=== PATIENT | male | born 1980 | race African-American/Black ===

== ENCOUNTER 2019-07-28 17:56 | Inpatient (IN) ==
[2019-07-28] MEDS ORDERED: DOXYCYCLINE PO ONE (18:34)
[2019-07-28] MEDS ORDERED: ROCEPHIN 2 GM in NS 50 ML IV ONE (18:34)
[2019-07-28 18:40] LABS: BASO# 0.03 X1000 (0.0-0.2); BASO% 0.4 % (0.0-0.8); EOS# 0.01 X1000 (0.0-0.7); EOS% 0.1 % (0.0-10.0); HEMOGLOBIN 13.8 g/dL (14.0-18.0); IMM GRAN# 0.02 X1000 (0.0-0.04); IMM GRAN% 0.2 % (0.0-0.5); LYMPH# 1.41 X1000 (1.2-3.4); LYMPH% 17.2 % (20.5-51.1); MCH 29.2 PG (27-31); MCHC 32.9 g/dL (33-37); MONO# 0.85 X1000 (0.11-0.59); MONO% 10.3 % (1.7-9.3); MPV 9.4 FL (7.4-10.4); NEUT% 71.8 % (42.2-75.2); PLT 325 X1000 (130-400); RBC 4.72 XMIL (4.7-6.1); RDW 14.9 % (11.5-14.5); WBC 8.22 X1000 (4.8-10.8)
--- NOTE | 2019-07-28 18:41 | Diag Imaging Result Doc PS360 ---
EXAM: CHEST-2 VIEWS - 07/28/2019 HISTORY: SOB TECHNIQUE: Chest two views COMPARISON: None. FINDINGS: There are right lower lung consolidation and atelectasis. There is a small to medium right pleural effusion. There is mild prominence of vascular interstitial markings. The right heart border is largely obscured but heart size appears to be borderline to mildly enlarged. IMPRESSION: Findings which may represent a combination of right lower lung pneumonia and pulmonary edema. Electronically signed by Faraz Flowers 07/28/2019 6:39 PM
--- NOTE | 2019-07-28 18:45 | EKG Report ---
Test Performed on : 07/28/2019 6:13:53 PM Test Reason : SOB Blood Pressure : / mmHG Vent. Rate : 111 BPM Atrial Rate : 111 BPM P-R Int : 140 ms QRS Dur : 092 ms QT Int : 354 ms P-R-T Axes : 036 -26 -27 degrees QTc Int : 481 ms Sinus tachycardia. Possible Left atrial enlargement T wave abnormality, consider lateral ischemia Abnormal ECG When compared with ECG of 29-MAR-2008 17:21, Non-specific change in ST segment in Anterior leads Nonspecific T wave abnormality, worse in Inferior leads T wave inversion now evident in Lateral leads Unconfirmed Result
[2019-07-28 18:48] LABS: INR 1.15; PROTIME 14.9 Seconds (11.0-16.0)
[2019-07-28 18:49] LABS: PTT 30.9 Seconds (22.3-41.8)
--- NOTE | 2019-07-28 19:00 | PROVIDER DOCUMENTATION ---
This chart was entered by Akiko Villareal Scribe, acting as scribe for Anthony Dubois MD. HPI-Respiratory General <GhanshyamAngel Jose David - Last Filed: 07/28/19 20:50> - General Source: patient - History of Present Illness-Resp Severity in ED: reports: mild Onset/Duration: reports: other (1 mon) Timing: reports: still present Cough Quality/Degree: reports: dry cough Episode Frequency: no prior episodes Current Respiratory Medication Therapy: Initiated none Modifying Factors: improves with: other (bending worsens and sleeping certain w ays worsens) Associated Symptoms: reports: cough, shortness of breath. denies: fever/chills, flu-like symptoms <Anthony Dubois - Last Filed: 07/29/19 07:26> - General Chief Complaint: Shortness of Breath Stated Complaint: SOB,EDEMA Time Seen by Provider: 07/28/19 18:16 Allergies/Adverse Reactions: Patient Allergies Allergy/AdvReac Type Severity Reaction Status Date / Time No Known Allergies Allergy Verified 01/22/17 11:24 Home Medications: Home Medication List Medication Instructions Recorded Confirmed Last Taken Type NK [No Home Medications] 07/29/19 07/29/19 Unknown History - History of Present Illness-Resp Nature of Presenting Problem: 39 yobm c/o sob and nonproductive cough for 1 month. pt sts bending and sleeping certain ways worsens pain. pt pilar has been sick at home and was in hospital. pt denies TB exposure. no fever, cp or nvd. (Anthony Dubois) Review of Systems - Adult - REVIEW OF SYSTEMS - ADULT Constitutional: reports: no symptoms reported. denies: chills, fever, night sweats Eyes: reports: no symptoms reported Ears, Nose, Mouth & Throat: reports: no symptoms reported Cardiovascular: reports: no symptoms reported. denies: chest pain Respiratory: reports: see HPI, cough, shortness of breath. denies: dyspnea on exertion, excessive sputum production, hemoptysis Gastrointestinal: reports: no symptoms reported. denies: diarrhea, nausea, vomiting Genitourinary: reports: no symptoms reported Musculoskeletal: reports: no symptoms reported Integumentary: reports: no symptoms reported Neurological: reports: no symptoms reported Psychiatric: reports: no symptoms reported Endocrine: reports: no symptoms reported Hematologic/Lymphatic: reports: no symptoms reported Allergic/Immunologic: reports: no symptoms reported All Other Systems: Reviewed and Negative <Anthony Dubois - Last Filed: 07/29/19 07:26> Past History - Adult - PAST MEDICAL HISTORY-ADULT Review of Records: reports: Nursing Assessment Review, Medications Reviewed, Social history reviewed & non-contributory. Major Childhood Illnesses: reports: denies history Cardiovascular: reports: denies history Respiratory: reports: denies history Gastrointestinal: reports: denies history Obstetrical/Gynecological: reports: denies history Genitourinary: reports: denies history Musculoskeletal: reports: denies history Neurological: reports: denies history Endocrine/Immune: reports: denies history Other Conditions: reports: denies history - PRIOR SURGERIES/PROCEDURES Surgical/Procedure History: reports: hernia repair - IMMUNIZATION STATUS Childhood Immunizations: See Nurse Assessment Flu Vaccine: See Nurse Assessment - FAMILY HISTORY Family History: reviewed, not pertinent - SOCIAL HISTORY Smoking: cigarettes, less than 1 pack/day Provider spent 3-5 mins advising pt. on dangers of tobacco.: Discussed manners to quit use, and f/u contacts for add'l counseling. Substance Use: none/never <Anthony Dubois - Last Filed: 07/29/19 07:26> Physical Exam-General - PHYSICAL EXAM-ADULT Initial Vital Signs Reviewed: Yes - CONSTITUTIONAL General Appearance: alert, no apparent distress. negative: cachetic, lethargic, slow to respond - EYES Eyes: PERRL/EOMI - HEAD, EARS, NOSE, MOUTH & THROAT HENMT: normocephalic/atraumatic, moist mucous membranes - NECK Neck: non-tender, full range of motion, supple, normal inspection - RESPIRATORY Respiratory: chest non-tender, normal breath sounds, no pleuratic chest pain, no respiratory distress, no accessory muscle use, decreased breath sounds (dullness at right base posteriorly), rales (rt sided). negative: lungs clear, respiratory distress, accessory muscle use - CARDIOVASCULAR Cardiovascular: normal peripheral pulses, no edema, no gallop, no JVD, no murmur , tachycardia. negative: regular rate, rhythm, irregularly irregular, PMI displaced laterally - GASTROINTESTINAL (ABDOMEN) Abdominal Exam: normal bowel sounds, non tender, soft - MUSCULOSKELETAL Back Exam: normal inspection Extremity: normal range of motion, non-tender, normal gait, normal inspection, normal capillary refill, pelvis stable. negative: abnormal NV exam, slow capillary refill - SKIN Integumentary: normal color, normal turgor, warm/dry - NEUROLOGIC Neurologic: grossly normal, no motor/sensory deficits - PSYCHIATRIC Psych/Mental Status: normal mood/affect, normal thought content, normal thought process, oriented x 3 <Anthony Dubois - Last Filed: 07/29/19 07:26> Progress - PLAN OF CARE/RESULTS Result Diagrams: 07/28/19 18:13 07/28/19 18:13 - CONSULTS/PCP/HOSPITALIST Notification #1 *Consult/PCP/Hospitalist*: Dr Gautam Time Discussed: 20:52 Consult Disposition: Will see in ED <Angel Morrissey - Last Filed: 07/28/19 20:50> - PLAN OF CARE/RESULTS Result Diagrams: 07/28/19 18:13 07/28/19 18:13 - EKG 1 Time of EKG reading by physician:: 18:13 EKG Read and Signed by:: Anthony Dubois EKG Interpretation (*Must complete 3 of following elements*): Abnormal Rate: 111 (possible LAE ) Rhythm: Sinus tachycardia [place]: normal QRS: normal VT Interval: normal ST Wave: non-specific ST changes (T wave abnoramlity, consider lateral ischemia) - XRAY 1 XRAY Study: Chest Impression: Abnormal, See EMR Report ( EXAM: CHEST-2 VIEWS - 07/28/2019 HISTORY: SOB TECHNIQUE: Chest two views COMPARISON: None. FINDINGS: There are right lower lung consolidation and atelectasis. There is a small to medium right pleural effusion. There is mild prominence of vascular interstitial markings. The right heart border is largely obscured but heart size appears to be borderline to mildly enlarged. IMPRESSION: Findings which may represent a c ombination of right lower lung pneumonia and pulmonary edema. Electronically signed by Faraz Flowers 07/28/2019 6:39 PM) - CHANGE OF SHIFT REPORT (ED Provider) 1 Report Given and Care Transferred to:: Dr. Mrorissey Time of Transfer: 19:00 Items Pending: CT/MRI Results <Anthony Dubois - Last Filed: 07/29/19 07:26> - PLAN OF CARE/RESULTS Progress/Plan/Lab Results: 07/28/19 19:10 Influenza Screen - Final Nasopharyngeal Laboratory Results - last 24 hr 07/28/19 07/28/19 07/28/19 18:13 18:13 18:13 WBC RBC Hgb Hct MCV MCH MCHC RDW Std Deviation Plt Count MPV Immature Gran % (Auto) Neut % (Auto) Lymph % (Auto) [place] % (Auto) Eos % (Auto) Baso % (Auto) Immature Gran # (Auto) Neut # (Auto) Lymph # (Auto) [place] # (Auto) Eos # (Auto) Baso # (Auto) PT INR PTT (Actin FS) Sodium 141 Potassium 4.2 Chloride 103 Carbon Dioxide 25 Anion Gap 13 BUN 20 Creatinine 1.2 Estimated GFR/1.73 m2 > 60 BUN/Creatinine Ratio 17 Glucose 129 H Calculated Osmolality 286 Calcium 8.2 L Total Bilirubin 0.76 AST 36 H ALT 88 H Alkaline Phosphatase 145 H Creatine Kinase 325 H Creatine Kinase Index 1.0 CK-MB (CK-2) 3.25 Troponin T High Sens Lib-V-Stbfdibfowy Pept 4321 H Total Protein 5.9 L Albumin 3.5 Globulin 2.4 Albumin/Globulin Ratio 1.5 Plasma Lactate 1.5 Urine Source Urine Color Urine Turbidity Urine pH Ur Specific [place] Urine Protein Ur Glucose (Stick) Ur Ketones (Stick) Urine Blood Urine Nitrite Urine Bilirubin Urobilinogen Dipstick Urine Leukocytes Urine WBC (Auto) Urine RBC (Auto) U Epithel Cells (Auto) Urine Bacteria (Auto) 07/28/19 07/28/19 07/28/19 18:13 18:13 18:13 WBC 8.22 RBC 4.72 Hgb 13.8 L Hct 42.0 MCV 89.0 MCH 29.2 MCHC 32.9 L RDW Std Deviation 14.9 H Plt Count 325 MPV 9.4 Immature Gran % (Auto) 0.2 Neut % (Auto) 71.8 Lymph % (Auto) 17.2 L [place] % (Auto) 10.3 H Eos % (Auto) 0.1 Baso % (Auto) 0.4 Immature Gran # (Auto) 0.02 Neut # (Auto) 5.90 Lymph # (Auto) 1.41 [place] # (Auto) 0.85 H Eos # (Auto) 0.01 Baso # (Auto) 0.03 PT 14.9 INR 1.15 PTT (Actin FS) 30.9 Sodium Potassium Chloride Carbon Dioxide Anion Gap BUN Creatinine Estimated GFR/1.73 m2 BUN/Creatinine Ratio Glucose Calculated Osmolality Calcium Total Bilirubin AST ALT Alkaline Phosphatase Creatine Kinase Creatine Kinase Index CK-MB (CK-2) Troponin T High Sens 27 H Dwi-M-Ylwhzrdrzvm Pept Total Protein Albumin Globulin Albumin/Globulin Ratio Plasma Lactate Urine Source Urine Color Urine Turbidity Urine pH Ur Specific [place] Urine Protein Ur Glucose (Stick) Ur Ketones (Stick) Urine Blood Urine Nitrite Urine Bilirubin Urobilinogen Dipstick Urine Leukocytes Urine WBC (Auto) Urine RBC (Auto) U Epithel Cells (Auto) Urine Bacteria (Auto) 07/28/19 07/28/19 20:30 22:05 WBC RBC Hgb Hct MCV MCH MCHC RDW Std Deviation Plt Count MPV Immature Gran % (Auto) Neut % (Auto) Lymph % (Auto) [place] % (Auto) Eos % (Auto) Baso % (Auto) Immature Gran # (Auto) Neut # (Auto) Lymph # (Auto) [place] # (Auto) Eos # (Auto) Baso # (Auto) PT INR PTT (Actin FS) Sodium Potassium Chloride Carbon Dioxide Anion Gap BUN Creatinine Estimated GFR/1.73 m2 BUN/Creatinine Ratio Glucose Calculated Osmolality Calcium Total Bilirubin AST ALT Alkaline Phosphatase Creatine Kinase Creatine Kinase Index CK-MB (CK-2) Troponin T High Sens Fsf-E-Bvbpbsekxvn Pept Total Protein Albumin Globulin Albumin/Globulin Ratio Plasma Lactate 1.0 Urine Source CLEAN CATCH Urine Color YELLOW Urine Turbidity CLEAR Urine pH 6.5 Ur Specific [place] 1.015 Urine Protein 70 A Ur Glucose (Stick) NEGATIVE Ur Ketones (Stick) NEGATIVE Urine Blood NEGATIVE Urine Nitrite NEGATIVE Urine Bilirubin NEGATIVE Urobilinogen Dipstick 2 A Urine Leukocytes NEGATIVE Urine WBC (Auto) 10-20 A Urine RBC (Auto) <10 U Epithel Cells (Auto) <10 Urine Bacteria (Auto) NEGATIVE Orders Category Date Time Status Admit - [facility] Routine AdmDCTranf 07/28/19 23:08 Active Activity - Up with Assistance ORDERED Care 07/28/19 23:08 Active Cardiac Monitoring DIRECTED Care 07/28/19 18:04 Active Intake and Output-Strict ORDERED Care 07/28/19 23:08 Active NEWS Score 2-4:Order NEWS Lactate Series NOW Care 07/28/19 18:04 Active Nursing- MD Consult Request ROUTINE Care 07/28/19 23:08 Active Oxygen Therapy- ED Nursing DIRECTED Care 07/28/19 18:04 Active Saline Loc NOW Care 07/28/19 18:04 Active Vital Signs Order Q 8-HR ASSESS Care 07/28/19 23:08 Active Z-Document. for Tele Applied ORDERED Care 07/28/19 23:08 Completed Physician/Provider Consults Routine Cons 07/28/19 23:08 Ordered NPO Diet 07/28/19 23:08 Active CHEST-2 VIEWS [RAD] Stat Exams 07/28/19 18:04 Completed Chest [CT THORAX W/CONTRAST] [CT] Stat Exams 07/28/19 18:32 Completed AFB CULT DIRECT [HH] Stat Lab 07/28/19 18:23 Ordered BASIC METABOLIC PANEL [CHEM] Routine Lab 07/29/19 06:00 Ordered BLOOD CULTURE [BLDCUL] Stat Lab 07/28/19 22:10 Results CBC WITH DIFF [HEME] Routine Lab 07/29/19 06:00 Ordered CBC WITH ELECTRONIC DIFF [HEME] Stat Lab 07/28/19 18:13 Completed CK PROFILE [SP CHEM] Stat Lab 07/28/19 18:13 Completed COMPREHENSIVE METABOLIC PANEL [CHEM] Stat Lab 07/28/19 18:13 Completed INFLUENZA SCREEN A/B Stat Lab 07/28/19 19:10 Completed LACTATE, PLASMA [CHEM] Lab 07/28/19 22:05 Completed LACTATE, PLASMA [CHEM] Lab 07/29/19 00:40 Completed LACTATE, PLASMA [CHEM] Q3H Lab 07/28/19 18:13 Completed PRO B-NATRIURETIC PEPTIDE Stat Lab 07/28/19 18:13 Completed PROTIME WITH INR [COAG] Stat Lab 07/28/19 18:13 Completed PTT [COAG] Stat Lab 07/28/19 18:13 Completed SPUTUM CULTURE WITH GRAM STAIN [RM] Stat Lab 07/28/19 18:22 Uncollected TROPONIN T HIGH SENSITIVITY Stat Lab 07/28/19 18:13 Completed URINALYSIS W/POSS RFLX CULT [URINALYSIS] Stat Lab 07/28/19 20:30 Completed URINE CULTURE [RM] Routine Lab 07/28/19 20:30 Received Acetaminophen [Tylenol] Med 07/28/19 23:08 Active 650 mg PO Q6H PRN PRN CefTRIAXONE [Rocephin] 1 gm Med 07/29/19 20:00 Active 0.9% Sodium Chloride Inj [Ns] 50 ml IV Q24H CefTRIAXONE [Rocephin] 2 gm Med 07/28/19 18:34 Discontinued 0.9% Sodium Chloride Inj [Ns] 50 ml IV NOW Doxycycline Med 07/28/19 18:34 Discontinued 100 mg PO NOW ONE Metronidazole 500 mg/Ns [Flagyl 500 mg/Ns] Med 07/29/19 00:00 Active 500 mg in 100 ml IV Q8H Ondansetron [Zofran] Med 07/28/19 23:08 Active 4 mg IV Q4H PRN PRN Pharmacy Order [Vancomycin IV Per Pharmacy] Med 07/28/19 23:08 Active 1 each MISC DIRECTED Sputum Induction Stat Oth 07/28/19 18:22 Active Telemetry [OM.EQ] Routine Oth 07/28/19 23:08 Active EKG [EKG] Stat Ther 07/28/19 18:04 Draft Transfer/Admit Order [TRANSFER] Routine Transfer 07/28/19 21:46 Completed Departure - Departure Date of Disposition Decision: 07/28/19 Time of Disposition Decision: 20:50 Certified Medical Emergency: Emergent - Critical Care Note This patient required my direct & personal management of CC.: No <Angel Morrissey - Last Filed: 07/28/19 20:50> <Anthony Dubois - Last Filed: 07/29/19 07:26> - Departure DIAGNOSIS: Pleural effusion, Pneumonia Disposition: ADMITTED INPATIENT 09 Condition: Fair Attestation - Physician/ RIC Attestation Patient care was provided by Advanced Practice Provider:: No The physician spent face to face time with patient:: Yes Advanced Practice Provider documentation review:: Supervising physician onsite and consulted in the evaluation and care of this patient. The physician did have a face to face encounter with the patient. <Angel Morrissey - Last Filed: 07/28/19 20:50> - Physician/ RIC Attestation Patient care was provided by Advanced Practice Provider:: No The physician spent face to face time with patient:: Yes Advanced Practice Provider documentation review:: Supervising physician onsite and consulted in the evaluation and care of this patient. The physician did have a face to face encounter with the patient. <Anthony Dubois - Last Filed: 07/29/19 07:26> This chart was documented by the indicated scribe, (Akiko Villareal, [place]) and accurately reflects the services I performed and decisions made by Silvino kat Frederick B., MD, as attested by the provider's signature.
[2019-07-28 19:15] LABS: AGAP 13; ALB/GLOB RATIO 1.5; ALBUMIN 3.5 g/dL (3.5-5.0); ALKALINE PHOSPHATASE 145 U/L (32-122); BUN 20 mg/dL (8-22); CALCIUM 8.2 mg/dL (8.8-10.2); CHLORIDE 103 mmol/L (98-107); COSMO 286; CREATININE 1.2 mg/dL (0.7-1.2); ESTIMATED GFR > 60; GLUCOSE 129 mg/dL (70-104); GOT 36 U/L (10-34); GPT 88 U/L (10-44); POTASSIUM 4.2 mmol/L (3.5-5.1); SODIUM 141 mmol/L (136-145); TCO2 25 mmol/L (25-35); TOTAL BILIRUBIN 0.76 mg/dL (0.20-1.00); TOTAL PROTEIN 5.9 g/dL (6.3-8.3)
[2019-07-28 19:27] LABS: CK PROFILE 325 U/L (24-204)
[2019-07-28 19:51] LABS: CK-MB 3.25 ng/mL (0.0-5.0)
--- NOTE | 2019-07-28 20:18 | Diag Imaging Result Doc PS360 ---
EXAM: CT THORAX W/CONTRAST - 07/28/2019 HISTORY: extensive RLL infiltrate/effusion (? cavitation) TECHNIQUE: CT thorax with intravenous contrast COMPARISON: 07/28/2019 chest radiograph FINDINGS: There is mild cardiomegaly. There is a moderate right pleural effusion. There is some compressive atelectasis at the right lower lobe. There is atelectasis and/or consolidation at the right middle lobe and anterior inferior right lower lobe. There is a small left pleural effusion. There is a small infiltrate at the anterior lateral left upper lobe. There is mild atelectasis at the left base. There is no discrete cavitary lesion identified. There is no evidence of pneumothorax. There are calcified right hilar lymph nodes from old granulomatous disease. There are nonspecific small noncalcified prevascular mediastinal lymph nodes. IMPRESSION: Mild cardiomegaly. Moderate right pleural effusion. Possible right middle lobe and anterior inferior right lower lobe pneumonia. Small left pleural effusion. Small infiltrate at anterior lateral left upper lobe. No discrete cavitary lesion. This exam was performed using automated exposure control, adjustment of mA or kV according to patient size, and/or use of iterative reconstruction technique. Electronically signed by Faraz Flowers 07/28/2019 8:15 PM
[2019-07-28 21:00] LABS: URINE SOURCE CLEAN CATCH
[2019-07-28 21:02] LABS: BILIRUBIN URINE NEGATIVE (NEGATIVE); BLOOD URINE NEGATIVE (NEGATIVE); COLOR YELLOW; GLUCOSE URINE NEGATIVE (NEGATIVE); KETONE URINE NEGATIVE (NEGATIVE); LEUKOCYTES URINE NEGATIVE (NEGATIVE); NITRITE URINE NEGATIVE (NEGATIVE); TURBIDITY URINE CLEAR (CLEAR); UROBILINOGEN URINE 2 mg/dL (NORMAL)
[2019-07-28 21:04] LABS: UR EPITHELIAL CELLS <10 /HPF (<10); URINE BACTERIA NEGATIVE /HPF; URINE RBC <10 /HPF (<10)
[2019-07-28 21:19] LABS: PH URINE 6.5; PROTEIN URINE 70 mg/dL (NEGATIVE)
[2019-07-28 21:26] LABS: SP GRAVITY URINE 1.015
--- NOTE | 2019-07-28 21:58 | HISTORY AND PHYSICAL ---
PRIMARY CARE PHYSICIAN: None. CHIEF COMPLAINT: Shortness of breath for 1 month. HISTORY OF PRESENTING ILLNESS: A 39-year-old male without any significant past medical history presented to emergency department with 1 month history of having shortness of breath. The patient states that every time he took a deep breath, he was becoming more short of breath. He also was recently noticing his lower extremity was swelling. The patient was evaluated in the emergency department. He was found to have pneumonia on imaging with a right pleural effusion. Due to his presenting symptoms he will require admission for further management. At the time of my examination, patient denied any headache, fever, chills, nausea, vomiting, diarrhea, hemoptysis, or any weight changes, but complained of shortness of breath. PAST MEDICAL HISTORY: None. PAST SURGICAL HISTORY: Hernia repair. ALLERGIES: No known drug allergies. CURRENT MEDICATIONS: None. SOCIAL HISTORY: Ten pack year history of smoking. Admits to alcohol use in the past. Denies any illicit drug use. FAMILY HISTORY: No history of coronary disease. REVIEW OF SYSTEMS: Fourteen point review of systems is as in HPI. Other systems negative. PHYSICAL EXAMINATION: GENERAL: Cooperative, friendly male. He is resting more comfortably now. VITAL SIGNS: Temperature 98.2 degrees, pulse 119, respirations 16, blood pressure 134/91. HEENT: Atraumatic, normocephalic. Extraocular movements intact. PERRLA. NECK: No masses. CHEST: Bibasilar rales. CARDIOVASCULAR: Regular rate and rhythm. ABDOMEN: Soft. Positive bowel sounds. EXTREMITIES: +1 edema. NEUROLOGIC: He is awake, alert, oriented x3. : No bladder distention. SKIN: Warm. LABORATORIES AND STUDIES: WBCs 8.22, hemoglobin 13.8, hematocrit 42.0, platelets 325,000. Sodium 141, potassium 4.2, chloride 103, CO2 is 25, BUN is 20, creatinine is 1.2, glucose 129. ProBNP is 4321. CT of the chest shows mild cardiomegaly, moderate right pleural effusion, possible right middle lobe and anterior inferior right lobe pneumonia. ASSESSMENT: This is a 39-year-old male without a significant past medical history presented to emergency department with 1 month history of shortness of breath. He was evaluated in the emergency department. He had imaging done which did show pneumonia and a right pleural effusion. Subsequently, he will require admission for further management. 1. Pneumonia. 2. Right pleural effusion. 3. Ongoing tobacco abuse. PLAN: 1. We will admit patient to medical floor with telemetry. 2. We will check blood cultures. Start patient on IV antibiotics. 3. We will consult Pulmonary for right pleural effusion. 4. Counseled patient extensively on smoking cessation. 5. Put patient on DVT prophylaxis with SCDs. 6. We will continue to follow reassess, make further recommendation based on patient's clinical course. cc: Jase Gautam MD
[2019-07-28] MEDS ORDERED: VANCOMYCIN IV PER PHARMACY MISC SCH (23:08)
[2019-07-28] MEDS ORDERED: TYLENOL PO PRN (23:08)
[2019-07-28] MEDS ORDERED: ZOFRAN IV PRN (23:08)
[2019-07-29] MEDS: FLAGYL 500 MG/NS 500 MG/100 ML IVPB IV SCH ×3 (00:47→16:19)
[2019-07-29] MEDS ORDERED: VANCOMYCIN 2,500 MG in NS 500 ML IV ONE (01:30)
[2019-07-29 07:59] LABS: BASO# 0.03 X1000 (0.0-0.2); BASO% 0.4 % (0.0-0.8); EOS# 0.03 X1000 (0.0-0.7); EOS% 0.4 % (0.0-10.0); HEMATOCRIT 39.2 % (42.0-52.0); HEMOGLOBIN 12.7 g/dL (14.0-18.0); IMM GRAN# 0.02 X1000 (0.0-0.04); IMM GRAN% 0.3 % (0.0-0.5); LYMPH# 1.93 X1000 (1.2-3.4); LYMPH% 24.7 % (20.5-51.1); MCH 28.9 PG (27-31); MCHC 32.4 g/dL (33-37); MCV 89.3 FL (81-99); MONO# 0.67 X1000 (0.11-0.59); MONO% 8.6 % (1.7-9.3); MPV 9.6 FL (7.4-10.4); NEUT# 5.12 X1000 (1.4-6.5); NEUT% 65.6 % (42.2-75.2); PLT 291 X1000 (130-400); RBC 4.39 XMIL (4.7-6.1); RDW 14.6 % (11.5-14.5)
[2019-07-29 08:25] LABS: AGAP 11; BUN 20 mg/dL (8-22); CALCIUM 8.5 mg/dL (8.8-10.2); CHLORIDE 105 mmol/L (98-107); COSMO 285; CREATININE 1.1 mg/dL (0.7-1.2); ESTIMATED GFR > 60; GLUCOSE 84 mg/dL (70-104); POTASSIUM 4.6 mmol/L (3.5-5.1); SODIUM 142 mmol/L (136-145); TCO2 26 mmol/L (25-35)
[2019-07-29] MEDS: LASIX IV SCH (11:37)
[2019-07-29] MEDS: VANCOMYCIN 1,400 MG in NS 250 ML IV SCH (17:26)
--- NOTE | 2019-07-29 19:05 | PROGRESS NOTE ---
DATE: 07/29/2019 SUBJECTIVE: The patient feels like he is breathing a little better. OBJECTIVE: Vital signs: Blood pressure is 119/91, heart rate of 108, respiratory rate of 16, temperature 98.1 degrees, 97% on room air. Cardiovascular: Regular rate and rhythm. Pulmonary: Diminished at the bases. Gastrointestinal: Soft, nontender. He has 2+ pitting edema from his ankles up to mid adams. He describes that he has been short of breath, and this has been going on for 2 months. PROBLEM LIST: 1. Pneumonia. We will continue empiric antibiotics. I really am not convinced this is pneumonia. It has been going on for 2 months. He has no white count, no fever. He has pitting edema, uncontrolled hypertension. His proBNP is 4321. He has a right-sided pleural effusion, which is clearly associated most commonly with congestive heart failure. 2. Pleural effusion, which engendered a pulmonary consult. Pulmonary immediately ordered an echocardiogram. We will see the results of that. It still has not been done, but I think this is most likely cardiac and not pulmonary especially with the duration of the symptoms and the etiology, but we will see what the echocardiogram shows when it is completed. I am going to start him on diuretics. We will start VANESSA inhibition and things of that nature once we get more definitive results. I am going to stop the Flagyl. I am not really sure. I guess that was started for anaerobic coverage so we will see how he does. cc: Owen Redd MD
[2019-07-29] MEDS ORDERED: ROCEPHIN 1 GM in NS 50 ML IV SCH (20:00)
--- NOTE | 2019-07-29 22:26 | PULMONOLOGY CONSULTATION ---
DATE: 07/29/2019 REQUESTING CLINICIAN: Dr. Jase Gautam. REASON FOR CONSULTATION: Pleural effusion. HISTORY OF PRESENT ILLNESS: Mr. Azevedo is a 39-year-old black male with 31-efdu-bcrh history for tobacco, history of alcohol use (he has been essentially a nondrinker for the last month by his report) who has had 2 month history of increasing dyspnea on exertion and paroxysmal nocturnal dyspnea. He has not sought medical care. He has had difficulty with a cough. He does have occasional chills and sweats but no fevers. The patient reports he has had lower extremity edema for the last 10 days. ALLERGIES: No known drug allergies. CHRONIC MEDICATIONS: None. PREVIOUS SURGERY: Inguinal hernia repair. SOCIAL HISTORY: The patient works at [employer]. 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 Prior alcohol and tobacco use as per above. FAMILY HISTORY: Noncontributory for lung disease. He does report a cousin playing basketball at a young age. REVIEW OF SYSTEMS: As noted in the HPI but is otherwise negative. PHYSICAL EXAMINATION: General: Reveals a well-developed, well-nourished male resting comfortably and in no distress. BP 119/91, heart rate 108, respiratory rate 16, oxygen saturation 96% on room air. HEENT: Pupils are equal and reactive. Oropharynx appears clear. Neck: Supple. Chest: Reveals good air entry bilaterally with normal S1, normal S2. No significant murmurs are appreciated. No gallops are noted. Abdomen: Soft. Extremities: Reveal 2+ peripheral edema. LABORATORIES: CT scan of the thorax reveals cardiomegaly with right greater than left pleural effusion and atelectasis of the right lower lobe. Sodium 142, potassium 4.6, chloride 105, bicarbonate 26, BUN 20, creatinine 1.1. His proBNP yesterday was elevated at 4321. IMPRESSION: 39-year-old with 1. Bilateral pleural effusions. 2. Cardiomegaly. 3. Dyspnea on exertion. 4. Paroxysmal nocturnal dyspnea. 5. Bilateral lower extremity edema. 39-year-old with problems outlined above. The patient has significant cardiomegaly on his plain film and his history is more consistent with heart failure than anything else. RECOMMENDATION: 1. Anticipate initiation of diuretics and an VANESSA inhibitor. 2. Obtain echocardiogram. 3. Anticipate need for cardiology consultation. cc: Dain Jimenez MD
[2019-07-30] MEDS: VANCOMYCIN 1,400 MG in NS 250 ML IV SCH (05:34)
[2019-07-30 07:06] LABS: BASO# 0.02 X1000 (0.0-0.2); BASO% 0.3 % (0.0-0.8); EOS# 0.02 X1000 (0.0-0.7); EOS% 0.3 % (0.0-10.0); HEMATOCRIT 38.7 % (42.0-52.0); HEMOGLOBIN 12.7 g/dL (14.0-18.0); LYMPH# 1.85 X1000 (1.2-3.4); LYMPH% 25.7 % (20.5-51.1); MCH 28.8 PG (27-31); MCHC 32.8 g/dL (33-37); MCV 87.8 FL (81-99); MONO# 0.67 X1000 (0.11-0.59); MONO% 9.3 % (1.7-9.3); MPV 9.6 FL (7.4-10.4); NEUT# 4.63 X1000 (1.4-6.5); NEUT% 64.4 % (42.2-75.2); PLT 284 X1000 (130-400); RBC 4.41 XMIL (4.7-6.1); RDW 14.4 % (11.5-14.5); WBC 7.19 X1000 (4.8-10.8)
[2019-07-30 07:29] LABS: AGAP 12; BUN 19 mg/dL (8-22); CALCIUM 8.5 mg/dL (8.8-10.2); CHLORIDE 100 mmol/L (98-107); COSMO 271; ESTIMATED GFR > 60; GLUCOSE 101 mg/dL (70-104); POTASSIUM 4.2 mmol/L (3.5-5.1); SODIUM 134 mmol/L (136-145); TCO2 22 mmol/L (25-35)
[2019-07-30] MEDS: LASIX IV SCH ×3 (08:02→22:20)
--- NOTE | 2019-07-30 09:43 | ECHO REPORT ---
ORDER DATE: 07/29/2019 MEASUREMENTS: Septal thickness 1.0, left ventricular internal diastolic 7.5, posterior wall thickness 1.0, aortic root 2.9, left atrium 5.1. SUMMARY: 1. Adequate quality study. 2. Aortic valve is trileaflet and opens normally on 2-dimensional images. Peak gradient across aortic valve is less than 5 mmHg. There is mild aortic regurgitation. Mitral, tricuspid and pulmonic valves are without evidence of structural abnormality with mild mitral regurgitation and mild tricuspid regurgitation. The estimated systolic PA pressure by Doppler is 40 to 45 mmHg suggesting mild pulmonary hypertension. Aortic root is normal size. 3. Severe left ventricular enlargement with normal wall thickness demonstrated. Estimated left ejection fraction approximately 10 to 15 percent in setting of severe global hypokinesis. Left atrium is moderately enlarged. The right atrium and right ventricle are mildly enlarged with mildly depressed right ventricular systolic function. 4. No pericardial effusion. 5. Bilateral pleural effusions evident. 6. Appearance of inferior vena cava suggests elevated central venous pressure. cc: MD Dain Nugent MD
[2019-07-30] MEDS: ENTRESTO 24 MG-26 MG TABLET PO SCH ×3 (11:30→22:20)
[2019-07-30] MEDS ORDERED: THIAMINE 200 MG in NS 50 ML IV ONE (18:20)
--- NOTE | 2019-07-30 19:15 | PROGRESS NOTE ---
DATE: 07/30/2019 SUBJECTIVE: Patient has no major complaints. He still feels like his legs are not any less swollen. OBJECTIVE: Vital signs: Blood pressure 102/73, heart rate of 100, respiratory rate 14, temperature 98.4 degrees. Cardiovascular: Regular rate and rhythm. Pulmonary: Bilateral breath sounds clear to auscultation. Gastrointestinal: Soft, nontender. His legs are still 2 to 3+ bilaterally up to midshin. LABORATORY: White count 7, hemoglobin and hematocrit 12 and 38, platelets 284,000. BUN and creatinine 19 and 1.0. PROBLEM LIST: Acute systolic congestive heart failure exacerbation. He really did not have any evidence from my standpoint of having any more. I do not think he had pneumonia. I guess we could check a procalcitonin level to be safe, but there was no white count. He has a right pleural effusion, which is not uncommonly seen in the setting of pneumonia, and we will follow. I have consulted Cardiology because he is going to need that and follow up in titration. I have changed him to Entresto. He is on Coreg. He will probably need diuretics. May consider Aldactone, and we will continue to monitor. He does have a heavy alcohol history use. cc: Owen Redd MD
--- NOTE | 2019-07-30 19:27 | CONSULTATION ---
DATE OF CONSULTATION: 07/30/2019 IMPRESSION: 1. Acute on chronic systolic heart failure. 2. Severe dilated cardiomyopathy with left ventricular ejection fraction approximately 15%. Suspect cardiomyopathy possibly related to previous significant alcohol use in the past or less likely long-standing hypertension, untreated. 3. Previous significant alcohol use in the past. Recently discontinued altogether in the past month but described as heavy prior to 6 months ago and moderate in the last 6 months. RECOMMENDATIONS: 1. Agree with initiation of Coreg and Entresto. 2. Increase Lasix to 40 mg IV twice daily. 3. Consider merits of right-sided thoracentesis. 4. Importance of abstaining from alcohol use in the future discussed with the patient. 5. Salt restriction. Also discussed with the patient. 6. Administer thiamine parenterally. HISTORY: This 39-year-old, male with past history of significant alcohol use in the past as well as tendency for elevated blood pressure not treated for hypertension was admitted for further management of progressive lower extremity swelling and exertional shortness of breath as well as some orthopnea. He was found to have significant right pleural effusion and significant peripheral edema. He was felt to have congestive heart failure. He has been started on diuretic therapy. Echocardiography indicated left ejection fraction around 15% in the setting of severe global hypokinesis. Cardiology was consulted. He relates that he previously drank fairly heavy more than 6 months ago, and over the past 6 months had been cutting back to moderate alcohol intake. Beginning in May started having problems with lower extremity swelling as well as exertional shortness of breath. These symptoms progressively gotten worse. At the same time he started on problems with not feeling like he could eat without getting nausea. He indicates that he might at times go several days without eating because of postprandial nausea. He has had some orthopnea throughout this. There has been no angina. He works at [employer]. He is . He has children. PAST MEDICAL HISTORY: 1. Elevated blood pressure in the past not treated for hypertension. 2. Significant heavy alcohol use in the past. PAST SURGICAL HISTORY: Previous hernia repair. ALLERGIES: He has no known drug allergies. MEDICATIONS: Prior to admission; none. SOCIAL HISTORY: He has history of significant alcohol use in the past characterized as being heavy prior to 6 months ago. Over the last 6 months, he has cut back to moderate amount of alcohol and he quit drinking altogether about a month ago. He has a 10 pack-year history of smoking. There is no history of illicit drug use. He is and has several children. He works at [employer]. FAMILY HISTORY: Negative for premature coronary disease. REVIEW OF SYSTEMS: Pulmonary: Noteworthy for dyspnea. Gastrointestinal: Noteworthy for postprandial nausea, otherwise negative. Constitutional: Noteworthy for some tendency for weight loss. Remainder of review of systems negative/noncontributory with 14 total systems reviewed. PHYSICAL EXAMINATION: General: This is a pleasant adult -[place] male in no distress on room air. Vital signs: Blood pressure 102/73, heart rate 100, oxygen saturation 100% on room air. HEENT: Extraocular movements intact. Mucous membranes are moist. Neck: Supple. Jugular distention is evident suggesting significantly elevated central venous pressure. There are no carotid bruits. Chest: Auscultation of the chest reveals diminished breath sounds in right base about [address] and posteriorly. Cardiac Exam: Reveals a regular rate and rhythm without appreciable murmur or gallop. Abdomen: Soft. Bowel sounds audible. Extremities: Demonstrate 3+ edema to the level of knees. Neurologic: Reveals him to be alert and fully oriented. Speech is fluent. Moves all 4 extremities equally well. Skin: Warm and dry. Psychiatric: Reveals mood to be appropriate. PERTINENT DATA: The 12-lead EKG demonstrates sinus tachycardia at 111 beats per minute. Left atrial abnormality and diffuse nonspecific T-wave abnormality. LABORATORY DATA: Includes white blood cell count 7.19, hematocrit 38.7, hemoglobin 12.7, platelet count 284,000, sodium 134, potassium 4.2, chloride 100, carbon dioxide 22, BUN 19, creatinine 1.0. Glucose 101. cc: Donta Nuñez MD
[2019-07-30] MEDS: COREG PO SCH ×2 (19:42→22:20)
--- NOTE | 2019-07-30 22:07 | PULMONOLOGY PROGRESS NOTE ---
DATE: 07/30/2019 SUBJECTIVE: The patient is awake and alert. He continues to have some lower extremity edema. He has been placed on Entresto and diuretics and is having good diuresis. Clinically, he feels better and less short of breath. OBJECTIVE: Vital Signs: BP 102/73, heart rate 100, respiratory rate 14, oxygen saturation 100% on room air. HEENT: Pupils are equal and reactive. Oropharynx is clear. Neck: Supple. Chest: Reveals crackles in both lung bases. Cardiac exam: S1-S2. Abdomen: Soft. Extremities: Reveal 2+ peripheral edema. LABORATORIES: Echocardiogram reveals severe dilated cardiomyopathy with an ejection fraction of 10% to 15%. Mild pulmonary hypertension noted with PA pressure of 40 to 45. IMPRESSION/PLAN: 1. Dilated cardiomyopathy. 2. Pleural effusions related to heart failure. 3. Clinical improvement with diuretics and VANESSA inhibitor. 4. No additional recommendations from a pulmonary standpoint. I will be available if needed. cc: Dain Jimenez MD
[2019-07-30 22:51] LABS: UR AMPHETAMINES QUAL NONE DETECTED (NONE DETECT); UR BARBITUATES QUAL NONE DETECTED (NONE DETECT); UR BENZODIAZEPIN QUAL NONE DETECTED (NONE DETECT); UR CANNABINOIDS QUAL NONE DETECTED (NONE DETECT); UR COCAINE QUAL NONE DETECTED (NONE DETECT); UR METHADONE QUAL NONE DETECTED (NONE DETECT); UR OPIATES QUAL NONE DETECTED (NONE DETECT); UR OXYCODONE QUAL NONE DETECTED (NONE DETECT); UR PCP QUAL NONE DETECTED (NONE DETECT)
--- NOTE | 2019-07-31 07:11 | Diag Imaging Result Doc PS360 ---
EXAM: CHEST-PORTABLE 07/31/2019 HISTORY: plueral effusion TECHNIQUE: AP portable at 0545 COMMENT: There is increased pleural fluid on the right. There is increased atelectasis in the right middle and lower lobe. There continues to be some patchy opacity in the left upper lobe and left lower lobe. There may be a small pleural effusion on the left. There is cardiomegaly. IMPRESSION: Worsened right pleural effusion. Electronically signed by Zane Ray 07/31/2019 7:08 AM
[2019-07-31 07:16] LABS: BASO# 0.02 X1000 (0.0-0.2); BASO% 0.3 % (0.0-0.8); EOS# 0.03 X1000 (0.0-0.7); EOS% 0.4 % (0.0-10.0); HEMOGLOBIN 14.5 g/dL (14.0-18.0); LYMPH# 2.04 X1000 (1.2-3.4); LYMPH% 26.2 % (20.5-51.1); MCH 29.1 PG (27-31); MCV 88.4 FL (81-99); MONO# 0.75 X1000 (0.11-0.59); MONO% 9.6 % (1.7-9.3); MPV 9.6 FL (7.4-10.4); NEUT# 4.95 X1000 (1.4-6.5); NEUT% 63.5 % (42.2-75.2); PLT 341 X1000 (130-400); RBC 4.98 XMIL (4.7-6.1); RDW 14.8 % (11.5-14.5); WBC 7.79 X1000 (4.8-10.8)
[2019-07-31 07:52] LABS: AGAP 12; BUN 18 mg/dL (8-22); CALCIUM 9.1 mg/dL (8.8-10.2); CHLORIDE 100 mmol/L (98-107); COSMO 284; CREATININE 1.1 mg/dL (0.7-1.2); ESTIMATED GFR > 60; GLUCOSE 112 mg/dL (70-104); MAGNESIUM 2.2 mg/dL (1.5-2.7); POTASSIUM 4.2 mmol/L (3.5-5.1); SODIUM 141 mmol/L (136-145); TCO2 29 mmol/L (25-35)
--- NOTE | 2019-07-31 08:11 | EKG Report ---
Test Performed on : 07/31/2019 06:44:58 AM Test Reason : dyspnea Blood Pressure : / mmHG Vent. Rate : 105 BPM Atrial Rate : 105 BPM P-R Int : 144 ms QRS Dur : 092 ms QT Int : 356 ms P-R-T Axes : 023 -24 -46 degrees QTc Int : 470 ms Sinus tachycardia. Possible Left atrial enlargement Left ventricular hypertrophy T wave abnormality, consider lateral ischemia Abnormal ECG When compared with ECG of 28-JUL-2019 18:13, (Unconfirmed) No significant change was found Confirmed by Arnoldo Quezada MD ([id number]) on 07/31/2019 7:32:24 PM
[2019-07-31] MEDS: ENTRESTO 24 MG-26 MG TABLET PO SCH ×2 (08:21→20:29)
[2019-07-31] MEDS: COREG PO SCH ×2 (08:21→20:29)
[2019-07-31] MEDS: LASIX IV SCH ×2 (08:21→20:29)
--- NOTE | 2019-07-31 15:31 | PROGRESS NOTE ---
DATE: 07/31/2019 SUBJECTIVE: Patient continues without shortness of breath or chest discomfort on room air. OBJECTIVE: Blood pressure 120/70, heart rate 200, oxygen saturation 100% on room air.Neck: Jugular venous distention is present consistent with central venous pressure around 10 to 12. Chest: Auscultation of the chest reveals diminished breath sounds in the right base. Cardiac: Reveals a regular rate and rhythm without appreciable murmur or gallop. Extremities: Demonstrate 2+ to 3+ pitting pretibial edema up to the level of knees. LABORATORY DATA: Includes a white blood cell count 7.9, hematocrit 44.0, hemoglobin 14.5, platelet count. 341,000. Sodium 141, potassium 4.2, chloride 100, carbon dioxide 29, BUN 18 creatinine 1.1, glucose 112. IMPRESSION: 1. Acute on chronic systolic heart failure. 2. Severe dilated cardiomyopathy with left ventricular ejection fraction approximately 15%. Suspect cardiomyopathy likely related to previous significant alcohol use or possibly longstanding hypertension untreated. 3. Significant alcohol use in the past prior to 6 months ago with patient reducing alcohol intake to a moderate level over the past 6 months and then discontinuing 1 month ago. RECOMMENDATIONS: 1. Continue diuresis at current rate. 2. Continue Entresto. 3. Continue carvedilol. 4. Consider merits of right-sided thoracentesis. cc: Donta Nuñez MD
[2019-07-31] MEDS ORDERED: THIAMINE 100 MG in NS 50 ML IV SCH (18:30)
--- NOTE | 2019-07-31 20:23 | PROGRESS NOTE ---
DATE: 07/31/2019 SUBJECTIVE: The patient still feels fairly like he has no improvement in his symptoms. OBJECTIVE: Blood pressure is 98/63, heart rate of 102, respiratory rate of 19, temperature of 97.3 degrees, 99% on room air.Cardiovascular: Regular rate and rhythm. Pulmonary: Bilateral breath sounds. Clear to auscultation. Gastrointestinal: Soft, nontender, nondistended. Bowel sounds are positive. Extremity: No clubbing or cyanosis. Extremities: He had 2+ pitting edema. Looks a little less to me, but the patient does not feel so. LABORATORY DATA: White count 7, hemoglobin and hematocrit 14 and 44, platelets of 341,000. Basic was normal. PROBLEM LIST: Acute systolic congestive heart failure exacerbation. We will continue diuretics and follow. Appreciate Cardiology's input. I had a long discussion with, I believe, the patient's mother. Anticipate another day or two of diuresis, although there was concern over a possible right-sided thoracentesis. We will discuss that with him tomorrow and see about trying to get the fluid off. I agree with Dr. Nuñez. cc: Owen Redd MD
[2019-08-01 07:52] LABS: BASO# 0.06 X1000 (0.0-0.2); BASO% 0.8 % (0.0-0.8); EOS# 0.04 X1000 (0.0-0.7); EOS% 0.5 % (0.0-10.0); HEMATOCRIT 42.6 % (42.0-52.0); IMM GRAN# 0.02 X1000 (0.0-0.04); IMM GRAN% 0.3 % (0.0-0.5); LYMPH# 1.96 X1000 (1.2-3.4); LYMPH% 26.8 % (20.5-51.1); MCH 29.4 PG (27-31); MCHC 32.9 g/dL (33-37); MCV 89.5 FL (81-99); MONO# 0.58 X1000 (0.11-0.59); MONO% 7.9 % (1.7-9.3); MPV 9.6 FL (7.4-10.4); NEUT# 4.66 X1000 (1.4-6.5); NEUT% 63.7 % (42.2-75.2); PLT 319 X1000 (130-400); RBC 4.76 XMIL (4.7-6.1); RDW 14.8 % (11.5-14.5); WBC 7.32 X1000 (4.8-10.8)
[2019-08-01 08:09] LABS: AGAP 10; BUN 20 mg/dL (8-22); CHLORIDE 101 mmol/L (98-107); COSMO 283; CREATININE 1.1 mg/dL (0.7-1.2); ESTIMATED GFR > 60; GLUCOSE 119 mg/dL (70-104); POTASSIUM 4.3 mmol/L (3.5-5.1); SODIUM 140 mmol/L (136-145); TCO2 29 mmol/L (25-35)
[2019-08-01 08:23] LABS: CALCIUM 8.7 mg/dL (8.8-10.2)
[2019-08-01] MEDS: ENTRESTO 24 MG-26 MG TABLET PO SCH ×2 (08:58→20:43)
[2019-08-01] MEDS: LASIX IV SCH ×2 (08:58→20:44)
[2019-08-01] MEDS: VITAMIN B-1 PO SCH (08:58)
[2019-08-01] MEDS: COREG PO SCH ×2 (08:58→20:43)
--- NOTE | 2019-08-01 20:02 | PROGRESS NOTE ---
DATE: 08/01/2019 SUBJECTIVE: Patient continues without shortness of breath or chest discomfort on room air. He relates feeling progressively better with diuresis. OBJECTIVE: Blood pressure 117/64, heart rate 93, oxygen saturation 96% on room air.Neck: Jugular venous distention is evident consistent with mildly elevated central venous pressure. Chest: Auscultation chest reveals diminished breath sounds in the right base. Cardiac: Reveals a regular rate and rhythm without appreciable murmur or gallop. Extremities: Demonstrate 2+ to 3+ high pretibial edema. LABORATORY DATA: Includes a white blood cell count 7.32, hematocrit 42.6, hemoglobin 14, platelet count 319,000. Sodium 140, potassium 4.3, chloride 101, carbon dioxide 29, BUN 20 creatinine 1.1, glucose 119. IMPRESSION: 1. Acute on chronic systolic heart failure. 2. Severe dilated cardiomyopathy with left ventricular ejection fraction approximately 15% and severe left ventricular enlargement. Suspect cardiomyopathy likely related to previous significant alcohol use or possibly long-standing hypertension untreated. 3. Significant alcohol use in the past prior to 6 months ago with patient reducing alcohol intake to a moderate level over the past 6 months and then discontinuing about 1 month ago. RECOMMENDATIONS: 1. Continue diuresis at current rate. Would appear that the patient will require several more days in the hospital and this was discussed with him. 2. Continue Entresto and carvedilol. cc: Donta Nuñez MD
--- NOTE | 2019-08-02 00:46 | PROGRESS NOTE ---
DATE: 08/01/2019 SUBJECTIVE: Patient with no major complaints. Breathing is a bit better. OBJECTIVE: Vital signs: Blood pressure 103/74, heart rate 94, respiratory 18, temperature 98.6 degrees, saturation 99% on room air. Cardiovascular: Regular rate and rhythm. Pulmonary: Bilateral breath sounds. Clear to auscultation. GI: Soft, nontender. Bowel sounds are positive. LABORATORY DATA: White count 7, hemoglobin and hematocrit 14 and 42, platelets 319,000. Basic is normal problem. ASSESSMENT AND PLAN: Acute systolic congestive heart failure exacerbation. We will continue diuretics, Entresto, Coreg. He seems to be doing better. Educated on salt and fluid restriction. We will continue to follow closely. Cardiology is following. Hopefully, will be able to discharge him soon, maybe in the next 1 to 2 days, per Cardiology. We will continue to follow closely. We will need ischemic workup at some point. I do not think he has any issues. It does look like he has a persistent pleural effusion. We will work on trying to do a thoracentesis tomorrow. cc: Owen Redd MD
[2019-08-02 08:27] LABS: INR 1.09; PROTIME 14.3 Seconds (11.0-16.0)
[2019-08-02] MEDS: VITAMIN B-1 PO SCH (09:05)
[2019-08-02] MEDS: COREG PO SCH ×2 (09:05→22:30)
[2019-08-02] MEDS: LASIX IV SCH ×2 (09:05→22:30)
[2019-08-02] MEDS: ENTRESTO 24 MG-26 MG TABLET PO SCH ×2 (09:05→22:30)
--- NOTE | 2019-08-02 15:44 | Diag Imaging Result Doc PS360 ---
EXAM: CHEST-2 VIEWS 08/02/2019 HISTORY: POST THORACENTESIS TECHNIQUE: Inspiratory expiratory chest COMMENT: The pleural fluid collection which was present on 07/31/2019 is almost completely gone. The heart size is enlarged. There is atelectasis or pneumonia in the right lower and middle lobe. This has apparently improved. There is no evidence of pneumothorax. IMPRESSION: Improved pleural fluid collection and basilar atelectasis. Cardiomegaly. Electronically signed by Zane Ray 08/02/2019 3:41 PM
--- NOTE | 2019-08-02 16:04 | Diag Imaging Result Doc PS360 ---
EXAM: US THORACENTESIS W/IMAGE GUIDE 08/02/2019 HISTORY: pleural effusion TECHNIQUE: Ultrasound-guided thoracentesis COMMENT: The risk and benefits of the procedure including the possibility of bleeding, infection, or reaction to lidocaine were discussed with the patient and he agreed to the procedure. Following sterile preparation the skin and administration 1% lidocaine to the skin and deeper soft tissues, the thoracentesis catheter was placed and subsequently 1100 mL of dark priscila fluid was drained. There are no immediate complications. IMPRESSION: Successful right ultrasound-guided thoracentesis. Electronically signed by Zane Ray 08/02/2019 4:02 PM
[2019-08-02 18:02] LABS: ALBUMIN BODY FLUID 1.3 g/dL; AMYLASE BODY FLUID 22 U/L; GLUCOSE BODY FLUID 128 mg/dL; LDH BODY FLUID 95 U/L; TOTAL PROT BODY FLUID 1.8 g/dL
--- NOTE | 2019-08-02 18:18 | PROGRESS NOTE ---
DATE: 08/02/2019 INTERVAL HISTORY: The patient underwent right-sided thoracentesis, which he tolerated well. However, during procedure he did have episode of dizziness, so the procedure was prematurely terminated, according to history given to me by the patient. SUBJECTIVE: He is feeling better in terms of his shortness of breath. He has occasional cough which is nonproductive. We had a detailed discussion about congestive heart failure, alcoholic cardiomyopathy, electrolytes, risk of sudden cardiac . I answered all of his questions. VITALS: Temperature of 97.5 degrees, pulse 85, respiratory rate 16, blood pressure 96/62. He is saturating 98% room air. PHYSICAL EXAMINATION: Not in acute distress. Oral cavity is moist.Lungs: Air entry bilaterally equal. No wheeze or rhonchi. He has decreased air entry with inspiratory crackles on right infrascapular region and there is a thoracentesis scar. Cardiovascular: S1, S2 normal. No murmur, rub, or gallop. Abdomen: Soft, nontender. Extremities: Bilateral lower extremity edema extending up to knee level. Neurological: He is alert and oriented x3. LABS: Suggest no CBC or BMP today and follow up with those labs tomorrow. Pleural fluid analysis has been ordered. Microbiology no positive data. IMAGING: Chest x-ray after thoracenteses had improved pleural fluid collection and basilar atelectasis. ASSESSMENT AND PLAN: 1. Acute systolic congestive heart failure. Differential includes alcoholic cardiomyopathy, untreated essential hypertension. Continue intravenous Lasix, Entresto and carvedilol. Will appreciate Cardiology recommendation about adding spironolactone in future. 2. Right pleural effusion. Could be related to congestive heart failure. On CT scan he did have infiltrate or atelectasis. I will follow up with pleural fluid analysis to determine the etiology. He is not complaining of worsening shortness of breath. Has not had any fevers, chills, or leukocytosis. I will hold off on antibiotics. 3. Alcohol use disorder. The patient has quit alcohol several days ago. I will keep him on thiamine. 4. Tobacco abuse. The patient denies any craving. I counseled him about stopping to use those substances. DISPOSITION: Continue to monitor patient inside hospital as he is needing intravenous Lasix. Plan of care discussed with him. I will follow up with proBNP tomorrow. All of his questions have been answered. cc: Chang Gonzalez MD
[2019-08-02 18:31] LABS: ALBUMIN 3.2 g/dL (3.5-5.0); TOTAL PROTEIN 6.3 g/dL (6.3-8.3)
[2019-08-02 18:31] LABS: BODY FLUID SOURCE PLEURAL FLUID; WBC BF 2581 /cumm
[2019-08-02 18:45] LABS: MONOS 95 %; POLYS 5 %
[2019-08-03 07:57] LABS: BASO# 0.03 X1000 (0.0-0.2); BASO% 0.5 % (0.0-0.8); EOS# 0.02 X1000 (0.0-0.7); EOS% 0.3 % (0.0-10.0); HEMATOCRIT 42.2 % (42.0-52.0); HEMOGLOBIN 13.7 g/dL (14.0-18.0); LYMPH% 21.7 % (20.5-51.1); MCH 28.8 PG (27-31); MCHC 32.5 g/dL (33-37); MCV 88.8 FL (81-99); MONO# 0.55 X1000 (0.11-0.59); MONO% 8.5 % (1.7-9.3); MPV 9.4 FL (7.4-10.4); NEUT# 4.44 X1000 (1.4-6.5); PLT 299 X1000 (130-400); RBC 4.75 XMIL (4.7-6.1); RDW 14.6 % (11.5-14.5); WBC 6.44 X1000 (4.8-10.8)
[2019-08-03 08:26] LABS: AGAP 10; BUN 21 mg/dL (8-22); CALCIUM 8.8 mg/dL (8.8-10.2); CHLORIDE 99 mmol/L (98-107); COSMO 281; CREATININE 1.1 mg/dL (0.7-1.2); ESTIMATED GFR > 60; GLUCOSE 101 mg/dL (70-104); POTASSIUM 4.3 mmol/L (3.5-5.1); SODIUM 139 mmol/L (136-145); TCO2 30 mmol/L (25-35)
[2019-08-03] MEDS: ENTRESTO 24 MG-26 MG TABLET PO SCH ×2 (08:55→21:28)
[2019-08-03] MEDS: LASIX IV SCH ×2 (08:55→21:19)
[2019-08-03] MEDS: VITAMIN B-1 PO SCH (08:55)
[2019-08-03] MEDS: COREG PO SCH ×2 (08:55→21:28)
[2019-08-03] MEDS ORDERED: ALDACTONE PO ONE (15:19)
--- NOTE | 2019-08-03 16:01 | PROGRESS NOTE ---
DATE: 08/03/2019 INTERVAL HISTORY: No acute events overnight. SUBJECTIVE: Mr. Azevedo denies new complaints. He wanted me to fill out his disability paperwork which I will work on. VITALS: Temperature of 98.4 degrees, pulse 93, respiratory 19, blood pressure 89/57, he is saturating 98% on room air. PHYSICAL EXAMINATION: He is not in acute distress. Oral cavity is moist. He has decreased air entry with inspiratory crackles in right infrascapular region, adequate air entry on left hemithorax. S1, S2 normal. No murmur or gallop.Abdomen: Soft, nontender. His internal jugular venous pressure is at the middle of anterior border sternoclavicular muscle, he continues to have lower extremity edema which is now confined to ankles. LABS: Suggestive of WBC of 6.4, hemoglobin 13.7, platelet of 299,000. His potassium is 4.3, BUN is 21, creatinine 1.1. His proBNP is decreasing to 1500. Microbiology, no data. IMAGING: No new data. ASSESSMENT AND PLAN: 1. Acute systolic congestive heart failure. Differential includes alcoholic cardiomyopathy versus others. Continue intravenous Lasix, Entresto and carvedilol. I will add spironolactone, based on my evaluation he could be considered for oral Lasix trial starting tomorrow. 2. Right pleural effusion status post right thoracenteses on 08/02/2019. His respiratory status improved symptomatically, pleural fluid analysis suggests transudative pathology with predominantly mononuclear WBCs, low protein and low LDH levels. 3. Alcohol use disorder. Continue oral thiamine . 4. Tobacco use disorder. He was counseled about quitting tobacco. 5. Disposition. Patient still has need for intravenous Lasix. My plan is transitioning him to oral Lasix as we monitor his response, accordingly I would anticipate discharge in next few days. Also follow up with kidney function and potassium as I start him on spironolactone. Mr. Azevedo is in agreement with the plan. I will also work on his disability paperwork. cc: Chang Gonzalez MD
[2019-08-03 17:57] LABS: PH BODY FLUID 7.5; SPECIMEN PLEURAL FLUID
[2019-08-03] MEDS: LOVENOX SUBQ SCH (18:42)
[2019-08-04] MEDS ORDERED: LASIX PO SCH (06:00)
[2019-08-04 07:31] LABS: AGAP 10; BUN 22 mg/dL (8-22); CALCIUM 8.8 mg/dL (8.8-10.2); CHLORIDE 101 mmol/L (98-107); COSMO 282; ESTIMATED GFR > 60; GLUCOSE 124 mg/dL (70-104); MAGNESIUM 2.2 mg/dL (1.5-2.7); POTASSIUM 4.5 mmol/L (3.5-5.1); SODIUM 139 mmol/L (136-145); TCO2 28 mmol/L (25-35)
[2019-08-04] MEDS: LASIX PO SCH (09:26)
[2019-08-04] MEDS: ALDACTONE PO SCH (09:27)
[2019-08-04] MEDS: COREG PO SCH ×2 (09:27→21:08)
[2019-08-04] MEDS: ENTRESTO 24 MG-26 MG TABLET PO SCH ×2 (09:27→21:08)
[2019-08-04] MEDS: VITAMIN B-1 PO SCH (09:27)
--- NOTE | 2019-08-04 17:36 | PROGRESS NOTE ---
DATE: 08/04/2019 SUBJECTIVE: The patient is sitting up in bed resting comfortably. He is not requiring any supplemental oxygen. He states that he feels much better today. OBJECTIVE: Vital Signs: Temperature 97.8 degrees, blood pressure 96/62, heart rate 107, respirations 20, O2 saturation is 96% on room air. Intake 700. Output 2 L. General: This is a young male sitting up in bed, in no acute distress. Heart: S1, S2 normal. Regular rate and rhythm. Lungs: Clear to auscultation bilaterally. Abdomen: Positive bowel sounds. Soft, nontender, nondistended. Extremities: No edema. No cyanosis. Neurologic: The patient is alert and oriented x3. LABS: Sodium 139, potassium 4.5, chloride 101, BUN 22, creatinine 1, glucose 124, magnesium 2.2. ASSESSMENT AND PLAN: 1. Acute systolic congestive heart failure exacerbation. Improved. The patient has been transitioned to oral Lasix. Continue on the current cardiac medications. Further management as per the sql dba. 2. Right pleural effusion status post right thoracentesis. Stable. We will check an x-ray tomorrow. 3. Alcohol abuse. The patient has been counseled about cessation. 4. Tobacco dependence. The patient has been counseled about tobacco cessation. 5. Deep vein thrombosis prophylaxis. Continue on Lovenox. cc: Kayla Aden MD MTDD
[2019-08-04] MEDS: LOVENOX SUBQ SCH (18:25)
[2019-08-05 06:56] LABS: BASO# 0.04 X1000 (0.0-0.2); BASO% 0.7 % (0.0-0.8); EOS# 0.05 X1000 (0.0-0.7); EOS% 0.9 % (0.0-10.0); HEMATOCRIT 42.1 % (42.0-52.0); HEMOGLOBIN 13.6 g/dL (14.0-18.0); LYMPH# 1.49 X1000 (1.2-3.4); LYMPH% 27.9 % (20.5-51.1); MCH 28.9 PG (27-31); MCHC 32.3 g/dL (33-37); MCV 89.4 FL (81-99); MONO# 0.52 X1000 (0.11-0.59); MONO% 9.7 % (1.7-9.3); MPV 9.3 FL (7.4-10.4); NEUT# 3.25 X1000 (1.4-6.5); NEUT% 60.8 % (42.2-75.2); PLT 284 X1000 (130-400); RBC 4.71 XMIL (4.7-6.1); RDW 14.8 % (11.5-14.5); WBC 5.35 X1000 (4.8-10.8)
[2019-08-05 07:07] LABS: AGAP 8; BUN 19 mg/dL (8-22); CALCIUM 8.6 mg/dL (8.8-10.2); CHLORIDE 102 mmol/L (98-107); COSMO 280; CREATININE 1.1 mg/dL (0.7-1.2); ESTIMATED GFR > 60; GLUCOSE 95 mg/dL (70-104); SODIUM 139 mmol/L (136-145); TCO2 29 mmol/L (25-35)
--- NOTE | 2019-08-05 07:27 | Diag Imaging Result Doc PS360 ---
EXAM: CHEST-2 VIEWS INDICATION: pulmonary edema/effusion TECHNIQUE: 2 views COMPARISON: 08/02/2019 FINDINGS: The atelectasis and/or infiltrate in the right lower and middle lobes have improved to near resolution. No new consolidation is appreciated. The small effusion on the right seen previously has grossly resolved by plain radiograph. There is stable cardiomegaly. Central vasculature is unremarkable. IMPRESSION: Interval improvement as described. Electronically signed by Nicko Villareal 08/05/2019 7:25 AM
[2019-08-05] MEDS: ALDACTONE PO SCH (09:49)
[2019-08-05] MEDS: VITAMIN B-1 PO SCH (09:49)
[2019-08-05] MEDS: LASIX PO SCH (09:49)
[2019-08-05] MEDS: ENTRESTO 24 MG-26 MG TABLET PO SCH (09:49)
[2019-08-05] MEDS: COREG PO SCH (09:49)
[2019-08-05 11:47] VITALS: BP 112/63
--- NOTE | 2019-08-05 11:54 | PROGRESS NOTE ---
DATE: 08/05/2019 SUBJECTIVE: The patient is sitting up in bed. He has no complaints. He denies any shortness of breath, cough, or dizziness. OBJECTIVE: Vital Signs: Temperature 99 degrees, blood pressure 102/69, heart rate 94, respirations 20, and 02 saturations 100% on room air. General: This is a young male sitting in bed in no acute distress. Heart: S1, S2 normal. Regular rate and rhythm. Lungs: Equal air entry bilaterally. No wheezing. No rales. Abdomen: Positive bowel sounds. Soft, nontender, and nondistended. Extremities: No edema. No cyanosis. Neurologic: The patient is alert and oriented x3. LABORATORY DATA: White blood cell count 5.3, hemoglobin 13, hematocrit 42, and platelets 284,000. Sodium 139, potassium 5, chloride 102, CO2 29, BUN 19, creatinine 1.1, and glucose 95. Chest x-ray reveals improvement. No consolidation. ASSESSMENT AND PLAN: 1. Acute systolic congestive heart failure exacerbation, improved. The patient has been started on oral Lasix by the supervisor pig machine. We will await further recommendations. 2. Right pleural effusion status post right thoracentesis. Stable. 3. Alcohol abuse. The patient has been counseled about cessation. 4. Tobacco dependence. The patient has been counseled about tobacco cessation. 5. Deep venous thrombosis prophylaxis. The patient is on Lovenox. 6. Disposition. The patient can be discharged home once cleared by the supervisor pig machine. cc: Kayla Aden MD
--- NOTE | 2019-08-05 14:34 | PROGRESS NOTE ---
DATE: 08/05/2019 SUBJECTIVE: Patient denies shortness of breath or chest discomfort. He relates feeling much better. OBJECTIVE: Vital Signs: Blood pressure 112/63, heart rate 90, oxygen saturation 100% on room air. Neck: There is mild elevation in jugular distention suggesting mild elevation in central venous pressure. Chest: Clear to auscultation bilaterally. Cardiac exam: A regular rate and rhythm without appreciable murmur or gallop. Extremities: Without edema. LABORATORY DATA: Includes white blood cell count of 5.35, hematocrit 42.1, hemoglobin 13.6, platelet count 284. Sodium 139, potassium 5.0, chloride 102, carbon dioxide 29. BUN 19, creatinine 1.1, glucose 95. IMPRESSION: 1. Acute on chronic systolic heart failure. Patient has improved with diuresis. 2. Severe dilated cardiomyopathy, suspected likely related to previous significant alcohol use or possibly longstanding hypertension, untreated. RECOMMENDATIONS: 1. Continue current cardiovascular regimen and oral Lasix 40 mg p.o. daily. 2. It is reasonable for patient to be discharged today. I will be happy to see him again in approximately 1 week. Samples of Entresto provided. cc: Donta Nuñez MD
--- NOTE | 2019-08-05 14:56 | DISCHARGE SUMMARY ---
ADMISSION DATE: 07/28/2019 DISCHARGE DATE: 08/05/2019 FINAL DISCHARGE DIAGNOSES: 1. Acute systolic congestive heart failure exacerbation. 2. Large right pleural effusion status post thoracentesis. 3. 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 4. Alcohol abuse. 5. Tobacco dependence. CONSULTATIONS: Cardiology consultation with Dr. Nuñez. IMAGIN. Chest x-ray performed on 07/28/2019, which revealed a right pulmonary edema. 2. CT of the chest performed on 07/28/2019, which revealed possible right middle lobe and anterior inferior right lower lobe pneumonia. Mild cardiomegaly. 3. An echocardiogram which revealed an ejection fraction of 10 to 15 percent. Small pulmonary hypertension. No pericardial effusion. PROCEDURES: Ultrasound-guided thoracentesis performed on 08/22/2019 at which time 1.1 L of pleural fluid was removed. HOSPITAL COURSE: Mr. Azevedo is a 39-year-old male with a history of tobacco and alcohol abuse who presented to the ER with shortness of breath and cough. On admission, a chest CT was done that revealed pulmonary edema and possible pneumonia. The patient was admitted to the hospitalist service and cardiology as well as pulmonary medicine were consulted. An echocardiogram was done that revealed an ejection fraction of 10 to 15 percent. After further questioning, the patient admitted to heavy alcohol usage for several years. The patient was started on diuretic therapy and medications for heart failure. The patient was noted to have a large right pleural effusion and was taken to the radiology suite on 08/02/2019 at which time an ultrasound-guided thoracentesis was done. 1.1 L of pleural fluid was removed during that procedure. Slowly over the course of the hospitalization, the patient responded well to the diuretic therapy. His shortness of breath improved. Eventually the patient was weaned off of supplemental oxygen and stated that he felt much better. The patient continued to improve clinically and was cleared for discharge home on 08/05/2019. DISCHARGE MEDICATIONS: 1. Entresto 1 tab oral twice a day. 2. Lasix 40 mg p.o. daily. 3. Aldactone 25 mg oral daily. 4. Coreg 6.25 mg oral twice a day. DISCHARGE DIET: Low-sodium diet; 1.8 L fluid restriction. ACTIVITY: As tolerated. FOLLOWUP INSTRUCTIONS: The patient will need to follow up with Dr. Nuñez on 08/13/2019 at 1:45 p.m. cc: MD Donta Trujillo MD
== END 2019-08-05 15:09 | disposition home or self-care (01) | DRG 292 ==
LOC: ED 17:56 → SUATTDRO 22:23 → 4N 22:23
PROVIDERS: ATTEND Internal Medicine